=== PATIENT | female | born 2000 | race Caucasian/White ===

== ENCOUNTER 2018-12-02 16:56 | Inpatient (IN) | payer OTHER ==
[~2018-12-02] VITALS: Ht 30.5 cm; Wt 6.0 kg
[2018-12-04] MEDS ORDERED: PROTONIX40 MG PO (10:17)
[2018-12-04] MEDS ORDERED: OXYC1TAB9 PO (10:17)
[2018-12-04] MEDS ORDERED: INTESTINEX680 M1 PO (10:17)
[2018-12-04] MEDS ORDERED: AMOX1TAB5 PO (10:18)
== END 2018-12-04 19:03 | disposition home or self-care (01) | DRG 343 ==
LOC: ER 16:56 → SURH 12-03 06:42 → SEC-K 12-03 06:42 → O/R 12-03 08:22 → SURH 12-03 10:40
PROVIDERS: ADMIT Surgery
PROC: 0DTJ4ZZ Resection of Appendix, Percutaneous Endoscopic Approach (ICD-10-PCS; principal; 2018-12-03 16:45)
DX: K35.890 Other acute appendicitis without perforation or gangrene (principal)

== ENCOUNTER 2020-05-29 11:10 | Outpatient (CLI) | payer OTHER ==
[~2020-05-29 11:10] MED LIST: AMOX1TAB5 PO; INTESTINEX680 M1 PO; OXYC1TAB9 PO; PROTONIX40 MG PO
== END 2020-05-29 11:17 | disposition home or self-care (01) ==
LOC: RAD 11:10
PROVIDERS: ATTEND Pediatrics
DX: M41.20 Other idiopathic scoliosis, site unspecified (principal)

== ENCOUNTER 2021-05-23 13:04 | Outpatient (CLI) | payer OTHER | END 2021-05-23 13:12 | disposition home or self-care (01) | LOC: RAD 13:04 | PROVIDERS: ATTEND Pediatrics | DX: M41.116 Juvenile idiopathic scoliosis, lumbar region (principal) ==

== ENCOUNTER 2021-05-28 16:36 | Emergency (ER) | payer OTHER ==
[~2021-05-28] VITALS: Ht 165.1 cm; Wt 71.7 kg
== END 2021-05-28 20:20 | disposition home or self-care (01) ==
LOC: ER 16:36
DX: J32.8 Other chronic sinusitis (principal); R05 Cough

== ENCOUNTER 2021-06-05 09:51 | Outpatient (CLI) | payer OTHER | END 2021-06-05 10:15 | disposition home or self-care (01) | LOC: ASH CLINIC 09:51 | PROVIDERS: ATTEND Internal Medicine Pulmonary Disease | DX: Z23 Encounter for immunization (principal); U07.1 COVID-19 ==

== ENCOUNTER 2024-02-22 12:17 | Outpatient (CLI) | payer OTHER | END 2024-02-22 12:35 | disposition home or self-care (01) | LOC: RAD 12:17 | PROVIDERS: ATTEND Surgery | DX: J32.4 Chronic pansinusitis (principal); N60.11 Diffuse cystic mastopathy of right breast; N60.12 Diffuse cystic mastopathy of left breast ==

== ENCOUNTER 2024-09-13 15:42 | Outpatient (CLI) | payer OTHER | END 2024-09-13 15:48 | disposition home or self-care (01) | LOC: TOM 15:42 | PROVIDERS: ATTEND Internal Medicine | DX: M41.9 Scoliosis, unspecified (principal); M54.50 Low back pain, unspecified ==

== ENCOUNTER 2025-03-03 09:15 | Outpatient (CLI) | payer OTHER | END 2025-03-03 09:22 | disposition home or self-care (01) | LOC: SONOGRAMA 09:15 | PROVIDERS: ATTEND Surgery | DX: N60.11 Diffuse cystic mastopathy of right breast (principal); N60.12 Diffuse cystic mastopathy of left breast ==

== ENCOUNTER 2025-09-14 01:55 | Emergency (ER) | payer OTHER ==
[~2025-09-14] VITALS: Ht 167.6 cm; Wt 69.9 kg
[2025-09-14] MEDS ORDERED: PROAIR RESPICL90 MCG (02:25)
[2025-09-14] MEDS ORDERED: ALBUTEROL SULFATE 3 ML/2.5 MG AMPUL.NEB IH STA (03:54)
[2025-09-14] MEDS ORDERED: KETOROLAC TROMETHAMINE 10 MG TABLET PO STA (03:54)
[2025-09-14] MEDS ORDERED: KETOROLAC TROMETHAMINE 10 MG TABLET PO ONE (04:01)
[2025-09-14] MEDS ORDERED: ALBUTEROL SULFATE 3 ML/2.5 MG AMPUL.NEB IH ONE (04:08)
[2025-09-14] MEDS ORDERED: ALBUTEROL2.5 MG/3 M IH (04:26)
[2025-09-14] MEDS ORDERED: KETO10TA2 PO ×2 (04:26→04:30)
== END 2025-09-14 05:02 ==
LOC: ER 01:56
DX: R07.89 Other chest pain (principal); R06.2 Wheezing